=== PATIENT | male | born 1935 | race Caucasian/White ===

== ENCOUNTER 2025-05-20 23:19 | Emergency (ER) | payer OTHER ==
[~2025-05-20] VITALS: Ht 162.6 cm; Wt 54.0 kg
[2025-05-20 23:26] VITALS: O2SAT 97
[2025-05-21 01:18] LABS: CREATININE 1.5 mg/dL (0.6-1.3)
[2025-05-21 01:19] LABS: UREA NITROGEN BLOOD 21.0 mg/dL (9-23)
[2025-05-21 01:21] LABS: TROPONIN I HIGH SENSITIVITY 22 ng/L (3.0-53)
[2025-05-21 01:29] LABS: HEMATOCRIT. 32.3 % (42.0-52.0); HEMOGLOBIN. 11.2 g/dL (14.0-18.0); RED BLOOD CELL COUNT 3.21 mill/uL (4.7-6.1)
[2025-05-21 01:30] LABS: BASOPHILS % 0.9 % (0.0-2.0); EOSINOPHILS % 5.2 % (0.0-5.0); LYMPHOCYTES % 25.3 % (20.0-50.0); MEAN PLATELET VOLUME 9.0 fl (7.4-10.4); MONOCYTES % 8.9 % (2.0-8.0); NEUTROPHILS % 59.7 % (40.0-76.0); PLATELET 203 x1000/uL (130-400); RED CELL DISTRIBUTION WIDTH 15.1 % (11.6-14.6)
[2025-05-21 03:35] LABS: TROPONIN I HIGH SENSITIVITY 27 ng/L (3.0-53)
[2025-05-21] MEDS ORDERED: IOHEXOL-350 100 ML BOTTLE ONE (05:12)
[2025-05-21 06:11] VITALS: BP 160/49; PULSE 78; RESP 25; TEMP 36.7; O2SAT 97
== END 2025-05-21 06:21 | disposition short-term general hospital (02) ==
LOC: ER 23:19 → EDBEDREQ 05-21 03:06 → EDBEDREQTM 05-21 03:06 → ER 05-21 06:21 → CMPBEDREQ 05-21 07:35
DX: I20.9 Angina pectoris, unspecified (principal); R07.89 Other chest pain; I10 Essential (primary) hypertension; N17.9 Acute kidney failure, unspecified; K44.9 Diaphragmatic hernia without obstruction or gangrene; Z95.5 Presence of coronary angioplasty implant and graft
CPT/HCPCS: 99285; 71045; 36415 ×2; 71275; 80048; 83880; 85025; 85379; 84484; Q9967